=== PATIENT | female | born 1960 | race Two or more races ===

== ENCOUNTER 2019-10-24 11:51 | Emergency (ER) | payer OTHER ==
[~2019-10-24] VITALS: Ht 157.5 cm; Wt 59.4 kg
[2019-10-24] MEDS ORDERED: WELLBUTRIN SR150 MG PO (12:18)
[2019-10-24] MEDS ORDERED: HYDRALAZINE HCL50 MG PO (12:18)
[2019-10-24] MEDS ORDERED: KAPSPARGO SPRIN25 MG PO (12:18)
[2019-10-24] MEDS ORDERED: PLAVIX75 MG PO (12:19)
[2019-10-24] MEDS ORDERED: NITRO-TIME2.5 MG PO (12:19)
== END 2019-10-24 15:30 | disposition left against medical advice (07) ==
LOC: ER 11:51
DX: R07.89 Other chest pain (principal)